=== PATIENT | female | born 1955 | race Caucasian/White ===

== ENCOUNTER 2021-10-17 13:15 | Emergency (ER) | payer MEDICARE, MEDICAID ==
[~2021-10-17] VITALS: Ht 172.7 cm; Wt 55.9 kg
[~2021-10-17 13:15] MED LIST: ALBU8.5H4 IH; ALBU8HFA IH; ARIP5TAB14 PO; ASPI-1265 PO; CEPH-571 PO; CLOP75TA34 PO; DOXY-224 PO; FLUT16SP2 NS; GABA-338 PO; LISI20TA28 PO; LOP25T PO; ZOC40T PO
[2021-10-17 13:26] VITALS: BP 115/63
[2021-10-17] MEDS ORDERED: ketorolac trometh inj. 60 MG/2 ML VIAL IM ONE (14:30)
== END 2021-10-17 15:42 | disposition home or self-care (01) ==
LOC: ER 13:16
DX: S52.602A Unspecified fracture of lower end of left ulna, initial encounter for closed fracture (principal); M79.602 Pain in left arm; I25.10 Atherosclerotic heart disease of native coronary artery without angina pectoris; I10 Essential (primary) hypertension; J44.9 Chronic obstructive pulmonary disease, unspecified; G89.29 Other chronic pain; Z98.890 Other specified postprocedural states; Z59.00 Homelessness unspecified; Z88.5 Allergy status to narcotic agent; Z79.82 Long term (current) use of aspirin; Z79.2 Long term (current) use of antibiotics; Z79.899 Other long term (current) drug therapy; W19.XXXA Unspecified fall, initial encounter; Y93.89 Activity, other specified; Y92.89 Other specified places as the place of occurrence of the external cause; Y99.8 Other external cause status
CPT/HCPCS: 29125; 73090; 73110; 96372; 99284; J1885

== ENCOUNTER 2024-12-18 14:24 | Outpatient (CLI) | payer MEDICARE, MEDICAID ==
[~2024-12-18 14:24] MED LIST changes: +ARIP5TAB12 PO; -ARIP5TAB14 PO
--- NOTE | 2024-12-18 15:32 | RADIOLOGY REPORT ---
CT chest without contrast History: HX OF TOBACCO USE TECHNIQUE: Images were obtained on the Siem[employer] Sensation-16 CT Scanner then reformatted in coronal pl ane. FINDINGS: On lung windows there is parenchymal scarring in the upper lung zones near the apices. No suspicious mass lesions. No infiltrates or effusions. Lung huffman are hyperexpanded. On soft tissue windows the heart size is borderline without pericardial effusion. There is coronary artery calcification No enlarged mediastinal lymph nodes. Limited views of the upper abdomen unremarkable IMPRESSION: 1. No signs of malignancy 2. No acute cardiopulmonary pathology. Mild bilateral apical parenchymal scarring 3. Signs of chronic hypertensive atherosclerotic cardiovascular disease Computed Tomographic Radiation Dosimetry Report: Total CTDI vol = 1.8 mGy Total DLP = 70 mGy-cm All C T scans at this medical facility are performed using dose modulation techniques as appropriate to a p erformed exam including the following: Automated exposure control was utilized; adjustment of the MA and/or KvP according to patient size; and use of iterative reconstruction technique.
== END 2024-12-18 23:59 | disposition home or self-care (01) ==
LOC: RAD 14:24
PROVIDERS: ATTEND Student in an Organized Health Care Education/Training Program
DX: Z12.2 Encounter for screening for malignant neoplasm of respiratory organs (principal); J98.4 Other disorders of lung; Z87.891 Personal history of nicotine dependence
CPT/HCPCS: 71271

== ENCOUNTER 2024-12-26 15:22 | Outpatient (CLI) | payer MEDICARE, MEDICAID ==
[~2024-12-26] VITALS: Ht 161.9 cm; Wt 68.0 kg
[2024-12-26 16:20] VITALS: PULSE 77; RESP 16; O2SAT 92
[2024-12-26] MEDS: albuterol 2.5 MG/3 ML nebule NEB ONE (16:20)
[2024-12-26 16:31] VITALS: PULSE 80; RESP 16
== END 2024-12-26 23:59 | disposition home or self-care (01) ==
LOC: RT 15:22
PROVIDERS: ATTEND Student in an Organized Health Care Education/Training Program
DX: J44.9 Chronic obstructive pulmonary disease, unspecified (principal)
CPT/HCPCS: 94060; 94760